=== PATIENT | female | born 1950 | race Caucasian/White ===

== ENCOUNTER → 2017-08-13 12:47 | Outpatient (CLI) | payer MEDICARE ==
[~2017-08-13] VITALS: Ht 162.6 cm; Wt 52.3 kg
[2017-08-13 13:33] VITALS: BP 131/80; Ht 162.6 cm; Wt 52.3 kg
== END | disposition home or self-care (01) ==
LOC: D.OPS 08-06 13:00
DX: M81.0 Age-related osteoporosis without current pathological fracture (principal)

== ENCOUNTER 2018-07-23 13:00 | Outpatient (CLI) | payer MEDICARE, OTHER ==
[~2018-07-23] VITALS: Ht 162.6 cm; Wt 52.7 kg
[2018-07-23 14:17] VITALS: BP 123/71; Ht 162.6 cm; Wt 52.7 kg
== END 2018-07-23 14:25 | disposition home or self-care (01) ==
LOC: D.OPS 13:00
DX: M81.0 Age-related osteoporosis without current pathological fracture (principal); Z01.812 Encounter for preprocedural laboratory examination

== ENCOUNTER 2019-03-03 12:32 | Outpatient (CLI) | payer MEDICARE, OTHER ==
[~2019-03-03] VITALS: Ht 162.6 cm; Wt 52.7 kg
[2019-03-03 12:59] VITALS: Ht 162.6 cm; Wt 52.7 kg
--- NOTE | 2019-03-03 13:49 | NUR ---
PROLIA 60MG SQ ADMINISTERED PER ORDERS. WRITTEN AND VERBAL DC INST. GIVEN TO PT. VERBALIZED UNDERSTANDING.
--- NOTE | 2019-03-03 13:55 | NUR ---
DC'D HOME VIA PRIVATE VEHICLE. STABLE AT TIME OF DC.
== END 2019-03-03 13:55 | disposition home or self-care (01) ==
LOC: D.OPS 12:32
PROVIDERS: ATTEND Family Medicine
DX: M81.0 Age-related osteoporosis without current pathological fracture (principal)

== ENCOUNTER 2019-09-07 13:37 | Outpatient (CLI) | payer MEDICARE, OTHER ==
[~2019-09-07] VITALS: Ht 162.6 cm; Wt 52.3 kg
[2019-09-07 13:53] VITALS: Ht 162.6 cm; Wt 52.3 kg
--- NOTE | 2019-09-07 14:00 | NUR ---
PT LEFT UNIT AMBULATING AT 1400. RECEIVED DC INSTRUCTIONS. STATES UNDERSTANDING.
== END 2019-09-07 14:00 | disposition home or self-care (01) ==
LOC: D.OPS 13:37
PROVIDERS: ATTEND Family Medicine
DX: M81.0 Age-related osteoporosis without current pathological fracture (principal)

== ENCOUNTER 2020-01-05 09:00 | Outpatient (CLI) | payer MEDICARE, OTHER ==
[2019-09-07 13:53] VITALS: BMI 19.7
== END 2020-01-05 10:00 | disposition home or self-care (01) ==
LOC: D.MAMMO 09:00
PROVIDERS: ATTEND Nurse Practitioner Family
DX: Z12.31 Encounter for screening mammogram for malignant neoplasm of breast (principal)

== ENCOUNTER 2020-03-08 11:33 | Outpatient (CLI) | payer MEDICARE, OTHER ==
[~2020-03-08] VITALS: Ht 162.6 cm; Wt 52.3 kg
[2020-03-08 11:45] VITALS: BP 100/65; Ht 162.6 cm; Wt 52.3 kg
== END 2020-03-08 11:52 | disposition home or self-care (01) ==
LOC: D.OPS 11:33
PROVIDERS: ATTEND Family Medicine
DX: M81.0 Age-related osteoporosis without current pathological fracture (principal)

== ENCOUNTER 2021-01-16 16:30 | Outpatient (CLI) | payer MEDICARE, OTHER ==
[2020-09-12 12:56] VITALS: BMI 20.6
== END 2021-01-16 23:59 | disposition home or self-care (01) ==
LOC: D.MAMMO 16:30
PROVIDERS: ATTEND Nurse Practitioner
DX: Z12.31 Encounter for screening mammogram for malignant neoplasm of breast (principal)